=== PATIENT | male | born 1935 | race African-American/Black ===

== ENCOUNTER → 2017-04-10 | Outpatient (CLI) | payer MEDICARE, OTHER ==
[~2017-04-10] MED LIST: ALLO100T PO; ASPI-664 PO; CALC0.2511 PO; CHOL100062 PO; CLOP75TA4 PO; COLC0.6T6 PO; FOLI-49 PO; FURO40TA4 PO; LABE200T25 PO; LEVO50TA74 PO; REGADENOSON 0.4 MG/5 ML SYG ONE; SIMV40TA3 PO; TAMS0.4C2 PO; VALS160T20 PO
--- NOTE | 2017-04-10 11:12 | CARRPT ---
DATE OF PROCEDURE: 04/10/2017 TYPE OF PROCEDURE: A Lexiscan Cardiolite stress test electrocardiogram portion. REASON FOR STRESS TESTING: Preoperative abnormal echocardiogram. Baseline vital signs during electrocardiogram: Pulse of 96, blood pressure 115/58. Electrocardiogram shows normal sinus rhythm, rate 96, normal axis, normal intervals, with nonspecific ST-T abnormalities. PROCEDURE: Patient underwent standard Lexiscan infusion protocol for 10 seconds followed by radiotracer. Patient's test was stopped due to completion protocol. Maximal achieved blood pressure during the test, 117/57. Maximum heart rate during test 104. ELECTROCARDIOGRAM FINDINGS: Patient did not develop any new Lexiscan-induced ST-T wave changes from baseline abnormalities of documented PVCs. SYMPTOMS: The patient had no complaints chest pain, but mild shortness of breath during stress testing, which resolved during recovery. IMPRESSION: 1. No Lexiscan-induced ST changes from baseline abnormalities that are diagnostic for cardiac ischemia. 2. No complaints of chest pain during stress testing. Positive shortness of breath resolved during recovery. 3. No documented premature ventricular contractions during stress test. 4. Report of nuclear images to follow in separate dictation for complete. Dictated By: Eder Moore /[email or web address] /Document#: [id number] CC: Iban Greer MD;*[facility]*
--- NOTE | 2017-04-10 11:47 | RADRPT ---
PROCEDURE: Lexiscan myocardial perfusion study CLINICAL INDICATION: 81 -year-old patient complaining of chest pain. TECHNIQUE: Lexiscan 0.4 mg intravenously separate acquisition gated myocardial perfusion SPECT usi ng Tc 99m Myoview 31.8 mCi intravenously at stress and Tc-99m Myoview, 10.9 mCi intravenously at res t was performed using the rest/stress sequence. Poststress Myoview SPECT images were obtained in th e supine position. COMPARISON: No prior studies. FINDINGS: Perfusion images reveal no evidence of perfusion defects. Lexiscan post stress gated SPECT images demonstrate no wall motion abnormalities. IMPRESSION: 1. Normal study with no evidence of perfusion defects or wall motion abnormalities. 2. The left ventricle ejection fraction at stress is 62%. A call report was made to Dr. Wright and 11:45 a.m. on April 25 1017. RPTAT: HH .Leslie Sanchez MD, Date Time Electronically viewed and signed by .Leslie Sanchez MD, on 04/10/2017 11:47 .L/
--- NOTE | 2017-04-10 15:30 | RADRPT ---
Echocardiogram Report Patient Name: JIM HAMMOND Gender: Male Date: 1935 Study Date: 10-Apr-2017 Spooler: Javier [facility] Location: EKG Ref. Physician: MARTIN DAVALOS Quality: Adequate Procedures: Transthoracic echocardiogram with complete 2D, M-Mode, and doppler examination. Indications: Hypertension. Pre-op. 2D/M Mode Doppler Measurement Value Normal Ranges Measurement Value Normal Ranges LVIDd 2D 3.7 3.5 - 5.6 cm AV Peak Ralph 1.7 m/sec LVIDs 2D 2.5 2.1 - 4.1 cm AV Peak PG 12.0 mmHg FS 2D 33.4 % LVOT Peak Ralph 1.5 m/sec LVPWd 2D 1.5 0.6 - 1.1 cm LVOT Peak PG 8.0 mmHg IVSd 2D 1.5 0.6 - 1.1 cm MV E Peak Ralph 0.6 m/sec IVS/LVPW 2D 1.0 MV A Peak Ralph 1.3 m/sec AoR Diam 2D 2.7 2.0 - 3.7 cm MV E/A 0.5 LA/Ao 2D 1 0 - 1 MV Decel Time 215 msec EDV 2D 51.1 cm3 MV E/A 0.5 ESV 2D 15.1 cm3 TR Peak Ralph 3.1 m/sec LA Dimen 2D 3.4 2.3 - 4.0 cm TR Peak PG 39.0 mmHg RVSP 47.0 mmHg Findings Left Ventricle: Normal left ventricular systolic function. Normal left ventricular cavity size. Moderate concentric left ventricular hypertrophy. Ejection fraction is visually estimated at 60 %. Tissue Doppler/Mitral Doppler indices are consistent with impaired relaxation (Stage I diastolic dysfunction). Right Ventricle: Normal right ventricular size. Normal right ventricular systolic function. Left Atrium: The left atrium is normal in size. Right Atrium: The right atrium is normal in size. Mitral Valve: Mild mitral leaflet calcification. Mild mitral annular calcification. Trace mitral regurgitation. Aortic Valve: Aortic sclerosis without stenosis. Trace aortic valve regurgitation. Tricuspid Valve: Normal appearance of the tricuspid valve. Estimated peak PA systolic pressure 47 mmHg. There is mild tricuspid regurgitation. Pulmonic Valve: Pulmonic valve not well visualized. There is trace pulmonic regurgitation. Pericardium: Small pericardial effusion. Aorta: Normal aortic root. IVC: Normal size and poor respiratory collapse consistent with elevated right atrial pressure. Conclusions 1.Normal left ventricular systolic function. Normal left ventricular cavity size. Moderate concentric left ventricular hypertrophy. Ejection fraction is visually estimated at 60 %. Tissue Doppler/Mitral Doppler indices are consistent with impaired relaxation (Stage I diastolic dysfunction). 2.Mild mitral leaflet calcification. Mild mitral annular calcification. Trace mitral regurgitation. 3.Aortic sclerosis without stenosis. Trace aortic valve regurgitation. 4.Normal appearance of the tricuspid valve. Estimated peak PA systolic pressure 47 mmHg. There is mild tricuspid regurgitation. 5.Pulmonic valve not well visualized. There is trace pulmonic regurgitation. 6.Small pericardial effusion. Electronically Signed By: Hi Wright 10-Apr-2017 15:29:46 -0700 Patient Name: JIM HAMMOND Study Date: 10-Apr-2017 [id number]
== END | disposition home or self-care (01) ==
LOC: EKG 08:11
PROVIDERS: ATTEND Internal Medicine Interventional Cardiology
DX: Z01.818 Encounter for other preprocedural examination (principal); I10 Essential (primary) hypertension; E11.9 Type 2 diabetes mellitus without complications
CPT/HCPCS: 78452; 93017; 93306; A9500; A9505; J2785

== ENCOUNTER 2017-05-10 08:43 | Emergency (ER) | payer MEDICARE, OTHER ==
[~2017-05-10] VITALS: Ht 157.5 cm; Wt 72.0 kg
[~2017-05-10 08:43] MED LIST changes: -REGADENOSON 0.4 MG/5 ML SYG ONE
[2017-05-10 08:50] VITALS: Ht 157.5 cm; Wt 72.0 kg
[2017-05-10] MEDS ORDERED: TRAZ50TA18 PO (10:25)
[2017-05-10] MEDS ORDERED: DOXA1TAB PO (10:26)
[2017-05-10] MEDS ORDERED: PANT40TA3 PO (10:26)
[2017-05-10] MEDS ORDERED: ATOR20TA38 PO (10:26)
[2017-05-10] MEDS ORDERED: APIX2.5T PO (10:27)
[2017-05-10] MEDS ORDERED: SUCR1TAB56 PO (10:27)
[2017-05-10 11:00] VITALS: BP 104/64; PULSE 101; RESP 18; TEMP 99.5
--- NOTE | 2017-05-10 11:00 | ERD ---
ER Documentation Chief Complaint Date/Time DATE: 05/10/17 TIME: 10:57 Chief Complaint Per family patient has a new formed ulcer to the buttock x2 days ago HPI This is an 81-year-old male with diabetes, chronic bilateral foot wounds, dialysis with dialysis yesterday who presents for evaluation of a right gluteal wound. The family states that they were told to come to the emergency room by Dr. Cedric Carmona. They deny any fevers or chills. They state the wound has been present for less than 1 week. No drainage or discharge has been noted. ROS All systems reviewed and are negative except as per history of present illness. Medications Home Meds Reported Medications Sucralfate* (Carafate*) 1 Gm Tab, 1 GM PO AC MEALS AND BEDTIME, TAB 05/10/17 Apixaban* (Eliquis*) 2.5 Mg Tablet, 2.5 MG PO BID, TAB 05/10/17 Pantoprazole* (Protonix*) 40 Mg Tablet.dr, 40 MG PO DAILY, TAB 05/10/17 Atorvastatin Calcium* (Atorvastatin Calcium*) 20 Mg Tablet, 20 MG PO QHS, #30 TAB 05/10/17 Doxazosin Mesylate* (Doxazosin Mesylate*) 1 Mg Tablet, 1 MG PO HS, TAB 05/10/17 Trazodone Hcl* (Trazodone Hcl*) 50 Mg Tablet, 50 MG PO QHS, #30 TAB 05/10/17 Levothyroxine Sodium* (Levothyroxine Sodium*) 50 Mcg Tablet, 50 MCG PO AC BREAKFAST, TAB 12/03/14 Folic Acid* (Folic Acid*) 1 Mg Tablet, 1 MG PO DAILY, TAB 12/03/14 Clopidogrel Bisulfate* (Clopidogrel Bisulfate*) 75 Mg Tablet, 75 MG PO DAILY, TAB 12/03/14 Allopurinol* (Allopurinol*) 100 Mg Tablet, 100 MG PO DAILY, TAB 12/03/14 Discontinued Reported Medications Valsartan* (Diovan*) 160 Mg Tablet, 160 MG PO DAILY, TAB 12/03/14 Aspirin* (Aspirin* EC) 81 Mg Tablet.dr, 81 MG PO DAILY, TAB 12/03/14 Furosemide* (Furosemide*) 40 Mg Tablet, 40 MG PO DAILY, TAB 12/03/14 Labetalol Hcl* (Labetalol Hcl*) 200 Mg Tablet, 200 MG PO TID, TAB 12/03/14 Colchicine* (Colcrys*) 0.6 Mg Tablet, 0.6 MG PO BID, TAB 12/03/14 Tamsulosin Hcl* (Tamsulosin Hcl*) 0.4 Mg Cap.er.24h, 0.4 MG PO DAILY, CAP 12/03/14 Simvastatin (Simvastatin) 40 Mg Tablet, 40 MG PO HS, TAB 12/03/14 Cholecalciferol* (Vitamin D3*) 1,000 Unit Tablet, 1000 UNIT PO DAILY, TAB 12/03/14 Calcitriol* (Calcitriol*) 0.25 Mcg Capsule, 0.25 MCG PO DAILY, CAP 12/03/14 Allergies Allergies: Coded Allergies: No Known Allergy (Unverified , 05/10/17) PMhx/Soc History of Surgery: Yes (BILATERAL GLAUCOMA SURGERY) Anesthesia Reaction: No Hx Neurological Disorder: No Hx Respiratory Disorders: Yes (BRONCHITIS) Hx Cardiac Disorders: Yes (HTN, PVD, HIGH CHOLESTEROL, CHF) Hx Psychiatric Problems: No Hx Miscellaneous Medical Probl: No Hx Alcohol Use: No Hx Substance Use: No Hx Tobacco Use: No Smoking Status: Never smoker FmHx Family History: diabetes Physical Exam Vitals Vital Signs Date Time Temp Pulse Resp B/P Pulse Ox O2 Delivery O2 Flow Rate FiO2 05/10/17 08:50 99.8 70 20 132/63 98 Physical Exam General: No significant distress Head: Normocephalic, atraumatic. Eyes: Pupils equally reactive, EOM intact ENT: Moist mucous membranes Neck: Supple, no lymphadenopathy Respiratory: Lungs clear bilaterally, no distress Cardiovascular: RRR, no murmurs, rubs, or gallops Abdominal: Soft, non-tender, non-distended, no peritoneal signs : Deferred MSK: Limited movement of all 4 extremities, no bony abnormalities Neurologic: Limited exam, and encephalopathic, limited movement of all 4 extremities Skin: The patient has an apparent stage II-III decubitus ulcer along the atrial crest of the right buttock. No drainage or discharge or abscess. Well- appearing. Psych: Unable to assess Procedures/MDM The patient has a development of a decubitus pressure ulcer. It is well- appearing without evidence of infection or significant necrosis. A wound care nurse was called and was kind enough to come to the bedside evaluate the patient place a dressing and educate the family. The family and the patient have follow-up as an outpatient on the with wound care. They have close follow-up with her primary care physician. No evidence of infection or complication that would warrant hospitalization. I spoke to the on-call provider for Dr. Cedric Carmona who states that they will help with case management to arrange in-home wound care. The patient is safe for discharge. Departure Diagnosis: Primary Impression: Decubitus ulcer Pressure ulcer location: buttock Pressure ulcer stage: stage 3 Laterality: right Qualified Code: L89.313 - Decubitus ulcer of right buttock, stage 3 Condition: Stable Patient Instructions: Decubitus Ulcer Additional Instructions: Call your primary care doctor TOMORROW for an appointment during the next 1 WEEK.Tell the clerk secretary that you were referred from this facility.See the doctor sooner or return here if your condition worsens before your appointment time. MARCO ANTONIO ALAMO MD May 10, 2017 11:00
== END 2017-05-10 13:45 | disposition home or self-care (01) ==
LOC: E/R 08:43
DX: L89.313 Pressure ulcer of right buttock, stage 3 (principal); I10 Essential (primary) hypertension; I50.9 Heart failure, unspecified; R40.2142 Coma scale, eyes open, spontaneous, at arrival to emergency department; R40.2252 Coma scale, best verbal response, oriented, at arrival to emergency department; R40.2362 Coma scale, best motor response, obeys commands, at arrival to emergency department; Z79.82 Long term (current) use of aspirin; Z79.01 Long term (current) use of anticoagulants
CPT/HCPCS: 99282

== ENCOUNTER 2017-09-20 15:04 | Inpatient (IN) | END 2017-10-20 22:00 | DRG 3 ==